=== PATIENT | female | born 1945 | race Caucasian/White ===

== ENCOUNTER 2017-03-15 18:08 | Inpatient (IN) | payer BC ==
--- NOTE | ~2017-03-15 | DS ---
Discharge Summary [facility] [address] [facility] [place]. [address] NAME: PAPA GUTIERREZ : 47 STATUS : DIS IN PAT#: [id number] AGE: 71 ADM/REG DATE : 03/15/17 MR#: [id number] REPORT SERV DATE: 04/01/17 DICTATED BY: DOMINGO QUINTERO DATE: 04/01/17 REPORT STATUS : Draft TRANSCRIBED BY: MODKatelynn DATE: 04/01/17 Data Collection from hospitalization DISCHARGE DIAGNOSES: 1. Extended-spectrum beta-lactamase Proteus mirabilis urinary tract infection. 2. Acute kidney injury on chronic kidney disease, stage 4. 3. Pancytopenia with sepsis, followed by appeals reviewer veteran. 4. Type 2 diabetes mellitus. 5. Acute blank respiratory failure secondary to sepsis. 6. Debility. 7. Chronic pain syndrome with history of fibromyalgia. CONSULTATIONS: Gold Lion M.D. PROCEDURES PERFORMED: None. MEDICATIONS: 1. Lipitor 10 mg at bedtime. 2. BuSpar 15 mg twice daily. 3. Coreg 12.5 mg twice daily. 4. Caltrate 600 mg twice daily. 5. Colace 100 mg twice daily. 6. Nuedexta one every 12 hours. 7. Uloric 40 mg every morning. 8. NovoLog insulin level 1 sliding scale before meals and at bedtime. 9. Claritin 10 mg every morning. 10.Ativan 0.5 mg twice daily. 11.Linzess 290 mcg before breakfast. 12.Melatonin 5 mg at bedtime. 13.CoQ10 200 mg every morning. 14.MS Contin 15 mg every 12 hours. 15.Multivitamin one every morning. 16.Lyrica 75 mg three times daily. 17.Requip 3 mg twice daily. 18.Zoloft 100 mg every morning. 19.Dulcolax 10 mg rectally daily as needed. 20.Magnesium 500 mg every morning. 21.Cranberry 425 mg every morning. 22.Prinivil 5 mg every morning. 23.Prolia 60 mg as directed subcutaneously every 6 months. 24.Percocet 10/325 mg one every 6 hours as needed. CONDITION AT DISCHARGE: Upon discharge, she did appear to be doing well and had no complaints. DISPOSITION: She was discharged with transfer to [facility] to continue an 1800-calorie ADA diet with activity as discussed. She was also discharged on oxygen at 2 L by nasal cannula. Discharge Summary [address] [place]. [address] NAME: PAPA GUTIERREZ : 47 STATUS : DIS IN PAT#: [id number] AGE: 71 ADM/REG DATE : 03/15/17 MR#: [id number] REPORT SERV DATE: 04/01/17 DICTATED BY: DOMINGO QUINTERO DATE: 04/01/17 REPORT STATUS : Draft TRANSCRIBED BY: MODKatelynn DATE: 04/01/17 HOSPITAL COURSE: This 71-year-old female had been transferred from [facility] at [facility] to the emergency room for complaints of low blood pressure and altered mental status. Due to the patient's decreased mental status a full history and physical exam was difficult to obtain, and the chart and staff had been reviewed. She was well known to me due to her multiple admissions. She was noted to have altered mental status at [facility] at [facility] and was therefore sent to the emergency room. Workup there had revealed increase BUN and creatinine, low platelets and questionable urine infection along with her mental status. She was therefore admitted for IV antibiotics, IV fluids, and continue medical care. She did continue to have some altered mental status. Otherwise, no nausea, vomiting, fever, chills or other signs or symptoms of infection. She had no rash. No signs or symptoms of other neurological deficits. Upon admission to the hospital, she had been placed on oxygen at 3 L by nasal cannula, and when awake she was to be placed on an 1800-calorie ADA diet. She was begun empirically on Rocephin for her possible urinary tract infection. Following the day of admission, her blood culture was noted to have been negative at 36 hours, and her urine culture was positive with gram-negative bacilli greater than 10.5; however, it still was not identified. She was continued on her current medications. On 03/18/2017 she denied any complaints of shortness of breath or chest pain or nausea or vomiting. She did not have any complaints of abdominal pain. Her daughter was at her bedside and reported the patient had been eating and drinking. Her urine culture on 03/18/2017 had returned with a growth of Proteus mirabilis greater than 100,000 which was sensitive to meropenem and Zosyn. On 03/19/2017 she was afebrile and her vital signs were stable; however, she was noted to be crying out in pain, stating that she had aching in her back and legs and hurt all over. She denied any complaints of shortness of breath or chest pain or nausea or vomiting or abdominal pain. She was continued on her current medications. On 03/20/2017, she was afebrile and her vital signs were stable. Her daughter was at her bedside and did report that the patient was resting better, and that her pain seemed to be better controlled. She was continued on supportive care. On 03/21/2017 she did remain in stable condition and had no new complaints noted. She had been evaluated by Physical Therapy. She did remain in stable condition and was noted to be pancytopenic. She was then seen on 03/22/[address] Gold Lion. In regard to her pancytopenia, Dr. Lion had felt that her chronic recurrent pancytopenia was secondary to her multiple comorbidities and recurrent infections causing inflammation and bone marrow suppression. He had recommended deferring any further workup as she was not transfusion dependent. On 03/23/2017, she had no new complaints noted and did continue to do well. She was continued on her current medications. She was noted to have a decent appetite and had no significant pain or shortness of breath noted. She did remain in stable condition and was then discharged on 03/24/2017 with the above instructions. Information collected by: Rhea Watson. I submit the above information as my discharge summary. SREE/ZAYNAB Domingo Quintero M.D. Discharge Summary [address] [place] [address] NAME: PAPA GUTIERREZ : 47 STATUS : DIS IN PAT#: [id number] AGE: 71 ADM/REG DATE : 03/15/17 MR#: [id number] REPORT SERV DATE: 04/01/17 DICTATED BY: DOMINGO QUINTERO DATE: 04/01/17 REPORT STATUS : Draft TRANSCRIBED BY: ZAYNAB DATE: 04/01/17 / [id number] CC: Nasim Mendosa MD [facility]
--- NOTE | ~2017-03-15 | CN ---
Consultation Report [facility] [address] [place]. [address] NAME: PAPA GUTIERREZ : 47 STATUS : ADM IN PAT#: [id number] AGE: 71 ADM/REG DATE : 03/15/17 MR#: [id number] REPORT SERV DATE: 03/22/17 DICTATED BY: GOLD CONTRERAS DATE: 03/22/17 REPORT STATUS : Draft TRANSCRIBED BY: MODKatelynn DATE: 03/22/17 HEMATOLOGY CONSULTATION NOTE DATE OF CONSULTATION: 03/22/2017 REASON FOR CONSULTATION: Pancytopenia. CHIEF COMPLAINT: Altered mental status and hypotension. HISTORY OF PRESENT ILLNESS: Ms. Gutierrez is a 71-year-old female with multiple comorbidities including coronary artery disease, congestive heart failure, rheumatoid arthritis, chronic kidney disease. She is bedbound, and resides at [facility] for the past four to five years. She has had multiple admissions and was last seen by our partner, Dr. Xiomy Frankel on 06/15/2015 for pancytopenia attributed to sepsis and infection. Now, Ms. Gutierrez is admitted from [facility] due to recurrent hypotension and altered mental status. She was found to have urinary tract infection with drug-resistant Proteus mirabilis, associated with white blood cell count of 2.5 and a platelet count of 37,000. Her platelet count was also low back in 02/2017 at 73, and despite antimicrobial therapy and supportive care in the hospital, her platelet count remains low, but she has been transfusion independent. She is currently in the room with her daughter, answers questions "yes" and "no," but is a very poor historian. REVIEW OF SYSTEMS: A complete 10-point review of systems is negative other than the above pertinent positives in the HPI. PAST MEDICAL HISTORY: Significant for coronary artery disease, congestive heart failure, chronic kidney disease, diabetes, hypertension, hyperlipidemia, fibromyalgia, chronic pain syndrome, severe deconditioning and bedbound, and history of chronic cytopenias for at least the past four to five years. SOCIAL HISTORY: The patient lives at [facility] and her daughter assists with medical decision-making. No tobacco, alcohol, or any illicit drug use. FAMILY HISTORY: Negative for any hematologic malignancies. PHYSICAL EXAMINATION: VITAL SIGNS: Include a blood pressure of 125/59, pulse of 73, respiratory rate of 18, temperature of 98.7 degrees Fahrenheit. GENERAL: This is a debilitated and chronically ill white female who is in no Consultation Report [address] [place]. [address] NAME: PAPA GUTIERREZ : 47 STATUS : ADM IN PAT#: [id number] AGE: 71 ADM/REG DATE : 03/15/17 MR#: [id number] REPORT SERV DATE: 03/22/17 DICTATED BY: GOLD CONTRERAS DATE: 03/22/17 REPORT STATUS : Draft TRANSCRIBED BY: ZAYNAB DATE: 03/22/17 apparent distress. She is eating lunch with assistance from her daughter who is spoon- feeding her. She is awake, alert, and oriented x1. HEENT: Extraocular muscles are intact. Pupils are equal, round, reactive to light. She has moist mucous membranes. NECK: Supple with no thyromegaly. CARDIOVASCULAR: She has a distant cardiac pulse on auscultation, but appears to be regular. No rubs, murmurs, or gallops that I can appreciate. LUNGS: Have coarse bibasilar breath sounds but no increased work of breathing. ABDOMEN: Obese but no hepatosplenomegaly is noted. MUSCULOSKELETAL: She has 2+ bilateral lower extremity edema with generalized weakness, 2/5 strength. LABORATORY DATA: Pertinent labs include a hemoglobin of 9.5, platelet count of 37,000, white blood cell count of 2.5. I reviewed her peripheral blood smear and confirmed no premature myeloid or lymphoid cells. No significant schistocytes, but I did appreciate poikilocytosis and anisocytosis on her smear. Thrombocytopenia was confirmed without any evidence of platelet clumping. Chest x-ray was reviewed and no acute abnormalities were noted. ASSESSMENT AND PLAN: Chronic recurrent pancytopenia. I suspect that her recurrent pancytopenia is secondary to her multiple comorbidities and recurrent infections causing inflammation and bone marrow suppression. There is no evidence on her peripheral blood smear review that there is an acute neoplastic hematologic malignancy. She may have an underlying low-grade myelodysplasia which would require a bone marrow biopsy; however, I feel we can defer this investigation as she is not transfusion dependent. Thus, we would avoid treatment at this point any ways. We can also evaluate her further for a potential DIC and check coags and fibrinogen levels. We will also add on additional nutritional studies to include an iron panel, copper, and zinc levels. Thank you for calling. It is my pleasure to assist with Ms. Gutierrez's care. We will be following along intermittently and provide further recommendations. GRS/MODL Gold Contreras MD / [id number] CC: Jacob Almanza M.D.
--- NOTE | ~2017-03-15 | HP ---
History And Physical [address] [place]. [address] NAME: PAPA GUTIERREZ : 47 STATUS : ADM [place] PAT#: [id number] AGE: 71 ADM/REG DATE : 03/15/17 MR#: [id number] REPORT SERV DATE: 03/16/17 DICTATED BY: DOMINGO QUINTERO DATE: 03/16/17 REPORT STATUS : Draft TRANSCRIBED BY: MODL DATE: 03/16/17 DATE OF ADMISSION: 03/15/2017 CHIEF COMPLAINT: Low blood pressures and altered mental status. HISTORY OF PRESENT ILLNESS: 71-year-old white female transferred from [facility] to [facility] Emergency Room for the above complaint. Due to the patient's decreased mental status, full history and physical exam is difficult to obtain. Chart and staff were reviewed. The patient is well known to me due to her multiple admissions. Please see old notes. She was noted to have altered mental status at [facility] and therefore was sent to the emergency room. Workup there revealed increased BUN and creatinine, low platelets, and questionable urine infection along with her mental status. She was therefore admitted for IV antibiotics, IV fluids, and continued medical care. Currently, the patient continues to have some altered mental status. Otherwise, no nausea or vomiting, no fever or chills, and no other signs or symptoms of infection. No rash. No signs or symptoms of other neurological deficits. ALLERGIES: MULTIPLE, PLEASE SEE CHART. MEDICATIONS: Please see MAR. PAST MEDICAL HISTORY: The patient is residing at [facility] for multiple chronic debilitative problems, especially overall gait impairment and end-stage arthritis, history of coronary artery disease with MS, systolic CHF with LVEF of 25% with ischemic cardiomyopathy, obstructive sleep apnea, morbid obesity, chronic O2 usage, cor pulmonale, anasarca, gouty arthritis, questionable rheumatoid arthritis, AICD secondary to cardiac arrhythmias, depression, anxiety, hypertension, dyslipidemia, chronic pain syndrome, fibromyalgia, IDDM type 2, history of pressure ulcers, anemia of chronic disease, gait impairment. PAST SURGICAL HISTORY: AICD placement, cataract surgery, carpal tunnel surgery, hysterectomy. SOCIAL HISTORY: The patient resides at [facility]. Daughter is present and does help with her medical care, [employer] rastafarian. FAMILY HISTORY: Hypertension. REVIEW OF SYSTEMS: Difficult to obtain due to the patient's decreased mental status. PHYSICAL EXAMINATION: History And Physical [address] [address] NAME: PAPA GUTIERREZ : 47 STATUS : ADM [place] PAT#: [id number] AGE: 71 ADM/REG DATE : 03/15/17 MR#: [id number] REPORT SERV DATE: 03/16/17 DICTATED BY: DOMINGO QUINTERO DATE: 03/16/17 REPORT STATUS : Draft TRANSCRIBED BY: MODKatelynn DATE: 03/16/17 VITAL SIGNS: Blood pressure 105/53, pulse 75, respirations 16, temperature 98.6. Weight 84 kg. GENERAL: Morbidly obese white female with decreased mental status at this time. HEAD: Normocephalic and atraumatic. EYES: Anicteric. ENT: Edentulous with dentures, but otherwise unremarkable. NECK: No JVD. LUNGS: CTA without RRW. CHEST WALL: AICD present, but otherwise no signs or symptoms of infection. HEART: Regular rate and rhythm without murmurs, gallops, or rubs. ABDOMEN: Obese, old surgical scars, nontender, nondistended. Good bowel sounds. EXTREMITIES: Chronic contractures of the upper and lower extremities, but otherwise no lesions. LYMPH: Chronic lower extremity trace bilateral edema. NEUROLOGIC: The patient confused, otherwise will follow simple commands. SKIN: Warm and dry otherwise. LABORATORY DATA: CBC shows WBC 3.8, H and H 12.4 and 38.5, PLT 51. Chemistry shows Na 142, K 4.9, Cl 103, CO2 of 29, BUN 144, creatinine 3.7 which has decreased to 3.1 today, GFR 14, albumin 3.0 (L), and chronically elevated liver function tests. Please see lab. Blood gas shows pH 7.24, pCO2 of 53, pO2 of 135, bicarb 22, O2 sat 98% on 3 L nasal cannula. Urinalysis appears to be infected. Culture pending at this time. IMAGING: Chest x-ray shows AICD, but otherwise no acute changes. IMPRESSION: 1. Altered mental status, questionable cause. 2. Hypercapnic respiratory failure, questionable cause. 3. Uremia with acute kidney injury on chronic kidney disease, stage 5 at this time. 4. Pyuria. 5. Anemia of chronic disease. 6. Thrombocytopenia. 7. Severe protein-calorie malnutrition. 8. Chronic elevated LFTs. 9. Insulin-dependent diabetes mellitus type 2. 10.History of systolic congestive heart failure/ischemic cardiomyopathy. 11.Morbid obesity with obstructive sleep apnea. 12.History of coronary artery disease. PLAN: 1. We will follow mental status. Multiple reasons for it. Could be from her respiratory status, infectious, or metabolic. We will follow closely and expect for it to improve with improved medical treatment. 2. We will follow respiratory status with more alertness at this time. We will initiate treatment if needed. We will follow symptoms at this time. 3. We will gently hydrate, consult Renal if needed, but the patient's renal function is slowly improving. The patient is at risk for worsening kidney function and kidney History And Physical [address] [address] NAME: PAPA GUTIERREZ [place] : 47 STATUS : ADM [place] PAT#: [id number] AGE: 71 ADM/REG DATE : 03/15/17 MR#: [id number] REPORT SERV DATE: 03/16/17 DICTATED BY: DOMINGO QUINTERO DATE: 03/16/17 REPORT STATUS : Draft TRANSCRIBED BY: ZAYNAB DATE: 03/16/17 failure. 4. We will follow up on urine culture. We will treat with Rocephin at this time. The patient is at risk for sepsis. 5. We will follow up chest x-ray once fluids are given to rule out pneumonia being the cause of some of her some problems. The patient is at risk for aspiration. 6. Follow up platelets, review meds, and discontinue any medication that could be causing her decreased platelets. The patient is at risk for intracranial hemorrhage. 7. Control blood pressure as she is at risk for CVA. 8. Control blood sugars as she is at risk for DKA. 9. Watch for pulmonary edema with fluids as she is at risk for worsening respiratory status with IV fluids. 10.Watch for any signs or symptoms of acute coronary syndrome as she is at risk for acute MS. 11.No DVT precautions at this time due to her decreased platelets. We will initiate some sequential pneumatic compression devices and follow symptoms for a DVT. The patient is at risk for PE and sudden . RH/MODL Domingo Quintero M.D. / [id number] CC: Jacob Almanza M.D.
[~2017-03-15 18:08] MED LIST: ASAB PO; ATV.5 PO; BUM1 PO; BUM2 PO; BUM5 PO; BUSPAR5 PO; CEFT5 PO; CENTRUM PO; CENTRUM TAB1 TAB PO; CLARIT10 PO; CO Q-10200 MG PO; COLCH6 PO; COLCRYS0.6 MG PO; COREG12 PO; COREG25 PO; CRANBERRY1 TAB OR; D.O.S.100 MG PO; DEBROX6.5 % OT; DIGITEK0.125 MG PO; DIGITEK0.25 MG PO; DOCUSOFT S100 MG PO; DOLOPHINE10 MG PO; DOLOPHINE5 MG PO; DSS PO; ESTRADIOL1 MG PO; FISH-EPA1000 MG PO; FLEXERIL5 MG PO; GENERLAC PO; GGEXPUD PO; GLUCAGEN IM; GLUCPH PO; GLUCXL10 PO; GLUCXL5 PO; GLYCOLAX; GLYCOLAX POWDER; GYNODIOL2 MG PO; HEMORRHOID RE; HUMALOG SC; IRON325 MG PO; KLONO5 PO; KLOR-CON 1010 MEQ PO; KLOR-CON M1010 MEQ PO; KLOR-CON M2020 MEQ PO; L40 PO; L80 PO; LAN125 PO; LANTUS SC; LEVAQUIN5T PO; LEVEMFLXPN SC; LEVEMIR SC; LIDODERM T; LOFIB160 PO; LOFIB67 PO; LORTAB10 PO; MAGOX4 PO; MELATONIN5 M1 PO; MICRO-K10 MEQ PO; MIRALAXPKT PO; MOMUD PO; MSIMMR15 PO; NEUR400 PO; NEUR800 PO; NITRO; NORCO PO; NORCO1 TA1 PO; NORV5 PO; NOVOLOG SC; NTG150 SL; NUEDEXTA 20-101 EACH PO; PCET PO; PERCOCET1 TA4 PO; PHENADOZ25 MG RE; PR25 PO; PRAVAC PO; PRAVACHOL40 MG PO; PRILOSEC40 MG PO; PROTONIX PO; REQUIP2 PO; REQUIP3 PO; ROXANOL20 MG/ML PO; SENTAB PO; SPIRO25 PO; STERAPRED5 MG; TRICOR48 PO; TRILIPIX135 MG PO; ULORIC40 MG PO; ULORIC80 MG PO; VASERETIC10 PO; VASOTEC10 PO; VITAMIN D1000 UNI1 PO; VITAMIN D31000 UNIT; VITAMIN D31000 UNIT PO; ZOL100 PO; ZYDONE1 TA2 PO; [UNRECOGNIZED DRUG - REMARK]
[2017-03-15 19:05] LABS: BASOPHILS 0 %; EOSINOPHILS 1.3 %; EOSINOPHILS ABSOLUTE 0.05 10/3/uL (0.0-0.53); IMMATURE GRANULOCYTES 0.8 %; IMMATURE GRANULOCYTES ABSOLUTE 0.03 10/3/uL (0.0-0.11); LYMPHOCYTES 19.4 %; LYMPHOCYTES ABSOLUTE 0.74 10/3/uL (0.67-4.30); MEAN CORPUSCULAR HEMOGLOB 27.1 pg (26.0-34.0); MEAN CORPUSCULAR VOLUME 84.2 fL (80-100); MONOCYTES 2.9 %; MONOCYTES ABSOLUTE 0.11 10/3/uL (0.21-1.20); NEUTROPHILS 75.6 %; NEUTROPHILS ABSOLUTE 2.88 10/3/uL (2.02-8.40); RBC DISTRIBUTION WIDTH 16.3 % (12.0-16.0)
[2017-03-15 19:06] LABS: ER CBC TAT 0 Hrs 05 Mins; HEMATOCRIT 38.5 % (36.0-48.0); HEMOGLOBIN 12.4 g/dL (12.0-16.0); MANUAL DIFF NO %; MEAN CORPUS HGB CONC 32.2 g/dL (32.0-36.0); RED CELL COUNT 4.57 10/6/uL (4.0-5.6); WHITE BLOOD CELLS 3.8 10/3/uL (4.5-10.5)
[2017-03-15 19:12] LABS: INTERNATIONAL NORMAL RATI 1.1 UNITS (-); PARTIAL THROMBO TIME 34.1 SEC (22.5-37.2); PROTIME (NOT ORD) 14.3 SEC (12.0-14.5)
[2017-03-15 19:21] LABS: CALCIUM, SERUM 8.5 MG/DL (8.5-10.4); CHLORIDE, SERUM 103 MMOL/L (96-112); SGOT(AST) 71 U/L (5-40); SGPT(ALT) 39 U/L (5-65); SODIUM, SERUM 140 MMOL/L (135-148); TOTAL PROTEIN 6.7 G/DL (6.0-8.5)
[2017-03-15 19:22] LABS: LACTATE 1.2 MMOL/L (0.3-2.4)
[2017-03-15 19:23] LABS: PLATELET ESTIMATE DEC (ADEQUATE)
[2017-03-15 19:24] LABS: PLATELET COUNT 51 10/3/uL (150-400)
[2017-03-15 19:25] LABS: ASCORBIC ACID (UR NOT ORDER) NEG (NEG); BILIRUBIN, URINE NEGATIVE (NEG); ER URINALYSIS TAT 0 Hrs 16 Mins; KETONE, URINE NEGATIVE (NEG); LEUKOCYTE ESTERASE(NOT OR LARGE (NEG); NITRITE (URINE) NEG (NEG); WBC (NOT ORDERED) (RFLEX) 24 (0-5)
[2017-03-15 19:27] LABS: A/G RATIO 0.8 (0.7-1.9); ALKALINE PHOSPHATASE 134 U/L (45-117); BUN (BLOOD UREA NITROGEN) 144 MG/DL (6-23); CO2 (CARBON DIOXIDE) 29 MMOL/L (24-34); GFR AFRICAN AMERICAN 14 ML/MIN (>=60); GFR NON AFRICAN AMERICAN 12 ML/MIN (>=60); GLOBULIN 3.7 G/DL (2.5-4.1); GLUCOSE, SERUM 76 MG/DL (60-99); POTASSIUM, SERUM 4.9 MMOL/L (3.5-5.3); TOTAL BILIRUBIN 0.4 MG/DL (0-1.2)
[2017-03-15 19:38] LABS: PROCALCITONIN 0.72 ng/mL (<0.5)
[2017-03-15] MEDS ORDERED: CLARIT10 PO (20:55)
[2017-03-15] MEDS ORDERED: MELATONIN5 M1 PO (20:56)
[2017-03-15] MEDS ORDERED: NUEDEXTA 20-101 EACH PO (20:56)
[2017-03-15] MEDS ORDERED: MAGNESIUM OXIDE 500 MG PO (20:58)
[2017-03-15] MEDS ORDERED: MSCONT15 PO (20:58)
[2017-03-15] MEDS ORDERED: ASAB PO (20:58)
[2017-03-15] MEDS ORDERED: ULORIC40 MG PO (20:59)
[2017-03-15] MEDS ORDERED: CRANBERRY425 MG PO (20:59)
[2017-03-15] MEDS ORDERED: MULTIVIT/MIN PO (21:00)
[2017-03-15] MEDS ORDERED: BUM1 PO (21:00)
[2017-03-15] MEDS ORDERED: COREG12 PO (21:00)
[2017-03-15] MEDS ORDERED: ATV.5 PO (21:01)
[2017-03-15] MEDS ORDERED: REQUIP3 PO (21:01)
[2017-03-15] MEDS ORDERED: PRIN5 PO (21:02)
[2017-03-15] MEDS ORDERED: CO Q-10200 MG PO (21:02)
[2017-03-15] MEDS ORDERED: LIPITOR10 PO (21:02)
[2017-03-15] MEDS ORDERED: CALTRA600D PO (21:03)
[2017-03-15] MEDS ORDERED: LINZESS 290 M290 MCG PO (21:03)
[2017-03-15] MEDS ORDERED: DSS PO (21:04)
[2017-03-15] MEDS ORDERED: PROLIA60 MG/1 ML SC (21:04)
[2017-03-15] MEDS ORDERED: BUSPAR15 M1 PO (21:04)
[2017-03-15] MEDS ORDERED: LANTUS SC (21:05)
[2017-03-15] MEDS ORDERED: LYRICA75 PO (21:05)
[2017-03-15] MEDS ORDERED: ZOL100 PO (21:05)
[2017-03-15] MEDS ORDERED: PERCOCET 10/3251 TAB PO (21:06)
[2017-03-15 21:27] LABS: BE (BASE EXCESS) -5.9 MEQ/L (0 +/- 2.5); HCO3 (ACTUAL BICARBONATE) 22.1 MEQ/L (23-27); INSTRUMENT SERIAL # 8087; PCO2 (CO2 TENSION) 53 MMHG (35-45); PO2 (O2 TENSION) 135 MMHG (79-93); pH 7.24 (7.37-7.43)
[2017-03-15 21:28] LABS: DEVICE NC; OPERATOR ID 33449; SAMPLE Arterial
[2017-03-16 08:38] LABS: BASOPHILS 0.2 %; BASOPHILS ABSOLUTE 0.01 10/3/uL (0.0-0.16); EOSINOPHILS 3.1 %; EOSINOPHILS ABSOLUTE 0.13 10/3/uL (0.0-0.53); HEMATOCRIT 38.3 % (36.0-48.0); HEMOGLOBIN 12.2 g/dL (12.0-16.0); IMMATURE GRANULOCYTES 0.9 %; IMMATURE GRANULOCYTES ABSOLUTE 0.04 10/3/uL (0.0-0.11); LYMPHOCYTES 16.8 %; LYMPHOCYTES ABSOLUTE 0.71 10/3/uL (0.67-4.30); MEAN CORPUS HGB CONC 31.9 g/dL (32.0-36.0); MEAN CORPUSCULAR HEMOGLOB 26.8 pg (26.0-34.0); MEAN CORPUSCULAR VOLUME 84.2 fL (80-100); MONOCYTES ABSOLUTE 0.34 10/3/uL (0.21-1.20); RBC DISTRIBUTION WIDTH 16.7 % (12.0-16.0); RED CELL COUNT 4.55 10/6/uL (4.0-5.6); WHITE BLOOD CELLS 4.2 10/3/uL (4.5-10.5)
[2017-03-16 08:51] LABS: A/G RATIO 0.8 (0.7-1.9); ALBUMIN 2.9 G/DL (3.5-5.0); ALKALINE PHOSPHATASE 121 U/L (45-117); BUN (BLOOD UREA NITROGEN) 126 MG/DL (6-23); CALCIUM, SERUM 8.4 MG/DL (8.5-10.4); CHLORIDE, SERUM 106 MMOL/L (96-112); CO2 (CARBON DIOXIDE) 22 MMOL/L (24-34); CPK (IF ELEVATED MB BANDS) 110 U/L (0-200); CREATININE 3.11 MG/DL (0.55-1.02); GFR AFRICAN AMERICAN 17 ML/MIN (>=60); GFR NON AFRICAN AMERICAN 14 ML/MIN (>=60); GLOBULIN 3.6 G/DL (2.5-4.1); GLUCOSE, SERUM 57 MG/DL (60-99); POTASSIUM, SERUM 4.4 MMOL/L (3.5-5.3); SGOT(AST) 51 U/L (5-40); SGPT(ALT) 36 U/L (5-65); SODIUM, SERUM 139 MMOL/L (135-148); TOTAL BILIRUBIN 0.3 MG/DL (0-1.2); TOTAL PROTEIN 6.5 G/DL (6.0-8.5); TROPONIN I 0.03 NG/ML (<0.05)
[2017-03-16 09:20] LABS: MANUAL DIFF NO %; PLATELET COUNT 38 10/3/uL (150-400)
[2017-03-17 06:31] LABS: BASOPHILS 0.3 %; BASOPHILS ABSOLUTE 0.01 10/3/uL (0.0-0.16); EOSINOPHILS ABSOLUTE 0.06 10/3/uL (0.0-0.53); HEMOGLOBIN 10.8 g/dL (12.0-16.0); IMMATURE GRANULOCYTES 1.7 %; IMMATURE GRANULOCYTES ABSOLUTE 0.05 10/3/uL (0.0-0.11); LYMPHOCYTES 21.5 %; LYMPHOCYTES ABSOLUTE 0.65 10/3/uL (0.67-4.30); MEAN CORPUS HGB CONC 32.1 g/dL (32.0-36.0); MEAN CORPUSCULAR HEMOGLOB 26.8 pg (26.0-34.0); MEAN CORPUSCULAR VOLUME 83.4 fL (80-100); MONOCYTES 6.3 %; MONOCYTES ABSOLUTE 0.19 10/3/uL (0.21-1.20); NEUTROPHILS 68.2 %; NEUTROPHILS ABSOLUTE 2.06 10/3/uL (2.02-8.40); RBC DISTRIBUTION WIDTH 16.4 % (12.0-16.0); RED CELL COUNT 4.03 10/6/uL (4.0-5.6)
[2017-03-17 06:33] LABS: HEMATOCRIT 33.6 % (36.0-48.0); MANUAL DIFF NO %; PLATELET COUNT 39 10/3/uL (150-400)
[2017-03-17 06:45] LABS: CALCIUM, SERUM 8.5 MG/DL (8.5-10.4); CHLORIDE, SERUM 103 MMOL/L (96-112); CO2 (CARBON DIOXIDE) 22 MMOL/L (24-34); POTASSIUM, SERUM 4.3 MMOL/L (3.5-5.3); SODIUM, SERUM 133 MMOL/L (135-148)
[2017-03-17 06:46] LABS: BUN (BLOOD UREA NITROGEN) 109 MG/DL (6-23); CREATININE 2.45 MG/DL (0.55-1.02); GFR AFRICAN AMERICAN 22 ML/MIN (>=60); GFR NON AFRICAN AMERICAN 19 ML/MIN (>=60); GLUCOSE, SERUM 201 MG/DL (60-99); PHOSPHORUS, SERUM 5.2 MG/DL (2.5-4.5)
[2017-03-17 06:53] LABS: RBC MORPHOLOGY NORM (NORMAL)
[2017-03-18 06:02] LABS: BASOPHILS 0.5 %; BASOPHILS ABSOLUTE 0.01 10/3/uL (0.0-0.16); EOSINOPHILS 3.8 %; EOSINOPHILS ABSOLUTE 0.08 10/3/uL (0.0-0.53); HEMATOCRIT 32.3 % (36.0-48.0); HEMOGLOBIN 10.5 g/dL (12.0-16.0); IMMATURE GRANULOCYTES ABSOLUTE 0.02 10/3/uL (0.0-0.11); LYMPHOCYTES 24.9 %; LYMPHOCYTES ABSOLUTE 0.52 10/3/uL (0.67-4.30); MEAN CORPUS HGB CONC 32.5 g/dL (32.0-36.0); MEAN CORPUSCULAR HEMOGLOB 26.6 pg (26.0-34.0); MEAN CORPUSCULAR VOLUME 81.8 fL (80-100); MONOCYTES 6.2 %; MONOCYTES ABSOLUTE 0.13 10/3/uL (0.21-1.20); NEUTROPHILS 63.6 %; NEUTROPHILS ABSOLUTE 1.33 10/3/uL (2.02-8.40); RBC DISTRIBUTION WIDTH 16.2 % (12.0-16.0); RED CELL COUNT 3.95 10/6/uL (4.0-5.6)
[2017-03-18 06:03] LABS: PLATELET COUNT 31 10/3/uL (150-400); WHITE BLOOD CELLS 2.1 10/3/uL (4.5-10.5)
[2017-03-18 06:04] LABS: MANUAL DIFF NO %
[2017-03-18 06:21] LABS: CALCIUM, SERUM 8.8 MG/DL (8.5-10.4); CHLORIDE, SERUM 105 MMOL/L (96-112); CO2 (CARBON DIOXIDE) 21 MMOL/L (24-34); CREATININE 2.02 MG/DL (0.55-1.02); GFR AFRICAN AMERICAN 28 ML/MIN (>=60); GFR NON AFRICAN AMERICAN 24 ML/MIN (>=60); GLUCOSE, SERUM 189 MG/DL (60-99); POTASSIUM, SERUM 4.4 MMOL/L (3.5-5.3); SODIUM, SERUM 135 MMOL/L (135-148)
[2017-03-18 06:22] LABS: BUN (BLOOD UREA NITROGEN) 95 MG/DL (6-23); ELLIPTOCYTES 1+ (3-10/OIF) (0-2/OIF)
[2017-03-19 14:05] LABS: HEMATOCRIT 32.9 % (36.0-48.0); MEAN CORPUS HGB CONC 33.4 g/dL (32.0-36.0); MEAN CORPUSCULAR HEMOGLOB 27.1 pg (26.0-34.0); NUCLEATED RED BLOOD CELLS 9.2 /100WBC (0-0); RBC DISTRIBUTION WIDTH 16.5 % (12.0-16.0); RED CELL COUNT 4.06 10/6/uL (4.0-5.6); WHITE BLOOD CELLS 2.9 10/3/uL (4.5-10.5)
[2017-03-19 14:06] LABS: MANUAL DIFF YES %; PLATELET COUNT 76 10/3/uL (150-400)
[2017-03-19 14:27] LABS: EOSINOPHILS 1 %; EOSINOPHILS ABSOLUTE (CALC) 0.03 10/3/uL (0.0-0.53); LYMPHOCYTES 24 %; NEUTROPHILS ABSOLUTE (CALC) 2.18 10/3/uL (2.02-8.40); OVALOCYTES 1+ (3-10/OIF) (0-2/OIF); PLATELET ESTIMATE DEC (ADEQUATE); SEGMENTED NEUTROPHIL (0) 75 %; TOTAL NUCLEATED CELLS 100
[2017-03-19 14:44] LABS: CALCIUM, SERUM 9.3 MG/DL (8.5-10.4); CHLORIDE, SERUM 109 MMOL/L (96-112); CO2 (CARBON DIOXIDE) 21 MMOL/L (24-34); GFR AFRICAN AMERICAN 40 ML/MIN (>=60); GFR NON AFRICAN AMERICAN 34 ML/MIN (>=60); GLUCOSE, SERUM 154 MG/DL (60-99); SODIUM, SERUM 138 MMOL/L (135-148)
[2017-03-19 14:46] LABS: BUN (BLOOD UREA NITROGEN) 74 MG/DL (6-23); CREATININE 1.52 MG/DL (0.55-1.02)
[2017-03-20 07:07] LABS: BUN (BLOOD UREA NITROGEN) 63 MG/DL (6-23); CALCIUM, SERUM 9.9 MG/DL (8.5-10.4); CHLORIDE, SERUM 111 MMOL/L (96-112); CO2 (CARBON DIOXIDE) 23 MMOL/L (24-34); CREATININE 1.37 MG/DL (0.55-1.02); GFR AFRICAN AMERICAN 45 ML/MIN (>=60); GFR NON AFRICAN AMERICAN 39 ML/MIN (>=60); GLUCOSE, SERUM 134 MG/DL (60-99); SODIUM, SERUM 141 MMOL/L (135-148)
[2017-03-20 10:14] LABS: BASOPHILS 0 %; EOSINOPHILS 3.6 %; EOSINOPHILS ABSOLUTE 0.11 10/3/uL (0.0-0.53); HEMATOCRIT 33.2 % (36.0-48.0); HEMOGLOBIN 10.6 g/dL (12.0-16.0); IMMATURE GRANULOCYTES 0.7 %; IMMATURE GRANULOCYTES ABSOLUTE 0.02 10/3/uL (0.0-0.11); LYMPHOCYTES 10.4 %; LYMPHOCYTES ABSOLUTE 0.32 10/3/uL (0.67-4.30); MEAN CORPUS HGB CONC 31.9 g/dL (32.0-36.0); MEAN CORPUSCULAR HEMOGLOB 26.6 pg (26.0-34.0); MEAN CORPUSCULAR VOLUME 83.2 fL (80-100); MONOCYTES 7.5 %; MONOCYTES ABSOLUTE 0.23 10/3/uL (0.21-1.20); NEUTROPHILS 77.8 %; NEUTROPHILS ABSOLUTE 2.39 10/3/uL (2.02-8.40); RBC DISTRIBUTION WIDTH 16.3 % (12.0-16.0); RED CELL COUNT 3.99 10/6/uL (4.0-5.6); WHITE BLOOD CELLS 3.1 10/3/uL (4.5-10.5)
[2017-03-20 10:25] LABS: PLATELET COUNT 36 10/3/uL (150-400)
[2017-03-20 10:26] LABS: MANUAL DIFF NO %
[2017-03-21 07:24] LABS: BASOPHILS 0.4 %; BASOPHILS ABSOLUTE 0.01 10/3/uL (0.0-0.16); EOSINOPHILS 3.6 %; HEMOGLOBIN 10.1 g/dL (12.0-16.0); IMMATURE GRANULOCYTES 0.7 %; IMMATURE GRANULOCYTES ABSOLUTE 0.02 10/3/uL (0.0-0.11); LYMPHOCYTES 15.1 %; LYMPHOCYTES ABSOLUTE 0.42 10/3/uL (0.67-4.30); MEAN CORPUS HGB CONC 32.6 g/dL (32.0-36.0); MEAN CORPUSCULAR HEMOGLOB 27.2 pg (26.0-34.0); MEAN CORPUSCULAR VOLUME 83.6 fL (80-100); MONOCYTES 7.9 %; MONOCYTES ABSOLUTE 0.22 10/3/uL (0.21-1.20); NEUTROPHILS 72.3 %; NEUTROPHILS ABSOLUTE 2.02 10/3/uL (2.02-8.40); RBC DISTRIBUTION WIDTH 16.4 % (12.0-16.0); RED CELL COUNT 3.71 10/6/uL (4.0-5.6); WHITE BLOOD CELLS 2.8 10/3/uL (4.5-10.5)
[2017-03-21 07:25] LABS: MANUAL DIFF NO %; PLATELET COUNT 36 10/3/uL (150-400)
[2017-03-21 07:37] LABS: BUN (BLOOD UREA NITROGEN) 60 MG/DL (6-23); CALCIUM, SERUM 9.3 MG/DL (8.5-10.4); CHLORIDE, SERUM 111 MMOL/L (96-112); CO2 (CARBON DIOXIDE) 26 MMOL/L (24-34); GFR AFRICAN AMERICAN 44 ML/MIN (>=60); GFR NON AFRICAN AMERICAN 38 ML/MIN (>=60); GLUCOSE, SERUM 134 MG/DL (60-99); POTASSIUM, SERUM 4.7 MMOL/L (3.5-5.3); SODIUM, SERUM 141 MMOL/L (135-148)
[2017-03-22 04:57] LABS: BUN (BLOOD UREA NITROGEN) 57 MG/DL (6-23); CALCIUM, SERUM 9.1 MG/DL (8.5-10.4); CHLORIDE, SERUM 106 MMOL/L (96-112); CO2 (CARBON DIOXIDE) 28 MMOL/L (24-34); CREATININE 1.41 MG/DL (0.55-1.02); GFR AFRICAN AMERICAN 44 ML/MIN (>=60); GFR NON AFRICAN AMERICAN 38 ML/MIN (>=60); GLUCOSE, SERUM 139 MG/DL (60-99); POTASSIUM, SERUM 4.6 MMOL/L (3.5-5.3); SODIUM, SERUM 139 MMOL/L (135-148)
[2017-03-22 04:59] LABS: BASOPHILS 0 %; EOSINOPHILS 5.5 %; EOSINOPHILS ABSOLUTE 0.14 10/3/uL (0.0-0.53); HEMATOCRIT 29.1 % (36.0-48.0); HEMOGLOBIN 9.4 g/dL (12.0-16.0); IMMATURE GRANULOCYTES 0.8 %; IMMATURE GRANULOCYTES ABSOLUTE 0.02 10/3/uL (0.0-0.11); LYMPHOCYTES 20.9 %; LYMPHOCYTES ABSOLUTE 0.53 10/3/uL (0.67-4.30); MANUAL DIFF NO %; MEAN CORPUS HGB CONC 32.3 g/dL (32.0-36.0); MEAN CORPUSCULAR VOLUME 83.6 fL (80-100); MONOCYTES 5.9 %; MONOCYTES ABSOLUTE 0.15 10/3/uL (0.21-1.20); NEUTROPHILS 66.9 %; NEUTROPHILS ABSOLUTE 1.69 10/3/uL (2.02-8.40); PLATELET COUNT 37 10/3/uL (150-400); RBC DISTRIBUTION WIDTH 16.6 % (12.0-16.0); RED CELL COUNT 3.48 10/6/uL (4.0-5.6); WHITE BLOOD CELLS 2.5 10/3/uL (4.5-10.5)
[2017-03-22 06:33] LABS: ELLIPTOCYTES 1+ (3-10/OIF) (0-2/OIF); PLATELET ESTIMATE DEC (ADEQUATE)
[2017-03-22 06:34] LABS: ACANTHOCYTES OCC (0-2/OIF); HELMET CELLS OCC (0-2/OIF); HYPOCHROMIA 1+ (3-10/OIF) (0-2/OIF); POLYCHROMASIA 1+ (2-5/OIF) (0-1/OIF); TARGET CELLS OCC (1-2/OIF) (0-1/OIF); TEARDROP SHAPED RBCS OCC (0-2/OIF)
[2017-03-23 08:47] LABS: BUN (BLOOD UREA NITROGEN) 52 MG/DL (6-23); CALCIUM, SERUM 9.3 MG/DL (8.5-10.4); CHLORIDE, SERUM 108 MMOL/L (96-112); CO2 (CARBON DIOXIDE) 24 MMOL/L (24-34); CREATININE 1.36 MG/DL (0.55-1.02); FERRITIN 161 NG/ML (8-252); GFR AFRICAN AMERICAN 46 ML/MIN (>=60); GFR NON AFRICAN AMERICAN 39 ML/MIN (>=60); GLUCOSE, SERUM 174 MG/DL (60-99); IRON, SERUM 34 MCG/DL (35-150); SODIUM, SERUM 135 MMOL/L (135-148)
[2017-03-23 13:40] LABS: BASOPHILS 0.3 %; BASOPHILS ABSOLUTE 0.01 10/3/uL (0.0-0.16); EOSINOPHILS 7.3 %; EOSINOPHILS ABSOLUTE 0.24 10/3/uL (0.0-0.53); HEMOGLOBIN 10.5 g/dL (12.0-16.0); IMMATURE GRANULOCYTES 0.3 %; IMMATURE GRANULOCYTES ABSOLUTE 0.01 10/3/uL (0.0-0.11); LYMPHOCYTES ABSOLUTE 0.63 10/3/uL (0.67-4.30); MEAN CORPUS HGB CONC 32.5 g/dL (32.0-36.0); MEAN CORPUSCULAR HEMOGLOB 26.7 pg (26.0-34.0); MEAN CORPUSCULAR VOLUME 82.2 fL (80-100); MONOCYTES 5.7 %; MONOCYTES ABSOLUTE 0.19 10/3/uL (0.21-1.20); NEUTROPHILS 67.4 %; NEUTROPHILS ABSOLUTE 2.23 10/3/uL (2.02-8.40); RBC DISTRIBUTION WIDTH 16.1 % (12.0-16.0); RED CELL COUNT 3.93 10/6/uL (4.0-5.6); WHITE BLOOD CELLS 3.3 10/3/uL (4.5-10.5)
[2017-03-23 13:42] LABS: HEMATOCRIT 32.3 % (36.0-48.0); PLATELET COUNT 36 10/3/uL (150-400)
[2017-03-23 13:43] LABS: FIBRINOGEN 452 MG/DL (230-462); INTERNATIONAL NORMAL RATI 1.2 UNITS (-); MANUAL DIFF NO %; PROTIME (NOT ORD) 14.8 SEC (12.0-14.5)
[2017-03-23 14:16] LABS: RBC MORPHOLOGY NORM (NORMAL)
[2017-03-24 07:15] LABS: BASOPHILS 0.3 %; BASOPHILS ABSOLUTE 0.01 10/3/uL (0.0-0.16); EOSINOPHILS 6.7 %; EOSINOPHILS ABSOLUTE 0.22 10/3/uL (0.0-0.53); HEMATOCRIT 29.8 % (36.0-48.0); HEMOGLOBIN 9.6 g/dL (12.0-16.0); IMMATURE GRANULOCYTES 0.6 %; IMMATURE GRANULOCYTES ABSOLUTE 0.02 10/3/uL (0.0-0.11); LYMPHOCYTES 21.2 %; LYMPHOCYTES ABSOLUTE 0.69 10/3/uL (0.67-4.30); MEAN CORPUS HGB CONC 32.2 g/dL (32.0-36.0); MEAN CORPUSCULAR HEMOGLOB 26.4 pg (26.0-34.0); MEAN CORPUSCULAR VOLUME 81.9 fL (80-100); MONOCYTES 6.7 %; MONOCYTES ABSOLUTE 0.22 10/3/uL (0.21-1.20); NEUTROPHILS 64.5 %; RBC DISTRIBUTION WIDTH 16.3 % (12.0-16.0); RED CELL COUNT 3.64 10/6/uL (4.0-5.6); WHITE BLOOD CELLS 3.3 10/3/uL (4.5-10.5)
[2017-03-24 07:18] LABS: PLATELET COUNT 55 10/3/uL (150-400)
[2017-03-24 07:19] LABS: MANUAL DIFF NO %
[2017-03-24 07:25] LABS: BUN (BLOOD UREA NITROGEN) 48 MG/DL (6-23); CHLORIDE, SERUM 107 MMOL/L (96-112); CO2 (CARBON DIOXIDE) 26 MMOL/L (24-34); CREATININE 1.25 MG/DL (0.55-1.02); GFR AFRICAN AMERICAN 50 ML/MIN (>=60); GFR NON AFRICAN AMERICAN 44 ML/MIN (>=60); GLUCOSE, SERUM 125 MG/DL (60-99); POTASSIUM, SERUM 4.8 MMOL/L (3.5-5.3); SODIUM, SERUM 139 MMOL/L (135-148)
[2017-03-24 07:45] LABS: HYPOCHROMIA 1+ (3-10/OIF) (0-2/OIF); PLATELET ESTIMATE DEC (ADEQUATE)
[2017-03-24 08:23] LABS: SED RATE 29 MM/HR (0-20)
[2017-03-25 20:11] LABS: COPPER 136 ug/dL (80-155); ZINC 47 ug/dL (60-120)
== END 2017-03-24 16:52 | DRG 871 ==
LOC: ER 18:08 → 4SO 20:55
PROVIDERS: Emergency Medicine; Family Medicine; Internal Medicine Hematology & Oncology; Nurse Practitioner Family; Nurse Practitioner Gerontology
DX: A41.89 Other specified sepsis (principal); E43 Unspecified severe protein-calorie malnutrition; N17.9 Acute kidney failure, unspecified; G93.41 Metabolic encephalopathy; I13.2 Hypertensive heart and chronic kidney disease with heart failure and with stage 5 chronic kidney disease, or end stage renal disease; J96.12 Chronic respiratory failure with hypercapnia; D61.818 Other pancytopenia; I50.22 Chronic systolic (congestive) heart failure; N18.5 Chronic kidney disease, stage 5; N39.0 Urinary tract infection, site not specified; R65.20 Severe sepsis without septic shock; I25.5 Ischemic cardiomyopathy; E86.0 Dehydration; E11.22 Type 2 diabetes mellitus with diabetic chronic kidney disease; D63.1 Anemia in chronic kidney disease; M79.7 Fibromyalgia; E66.01 Morbid (severe) obesity due to excess calories; I25.10 Atherosclerotic heart disease of native coronary artery without angina pectoris; F41.9 Anxiety disorder, unspecified; F32.9 Major depressive disorder, single episode, unspecified; G47.33 Obstructive sleep apnea (adult) (pediatric); G89.4 Chronic pain syndrome; M10.9 Gout, unspecified; K21.9 Gastro-esophageal reflux disease without esophagitis; I25.2 Old myocardial infarction; Z79.4 Long term (current) use of insulin; Z98.890 Other specified postprocedural states; Z95.810 Presence of automatic (implantable) cardiac defibrillator; Z68.31 Body mass index [BMI] 31.0-31.9, adult; Z74.01 Bed confinement status; Z99.81 Dependence on supplemental oxygen; L89.151 Pressure ulcer of sacral region, stage 1; K59.00 Constipation, unspecified; E11.42 Type 2 diabetes mellitus with diabetic polyneuropathy; I95.9 Hypotension, unspecified; Z88.0 Allergy status to penicillin; Z88.2 Allergy status to sulfonamides; Z88.8 Allergy status to other drugs, medicaments and biological substances; Z88.5 Allergy status to narcotic agent; E11.65 Type 2 diabetes mellitus with hyperglycemia
CPT/HCPCS: 36415; 36600; 71010; 80048; 80053; 81001; 82525; 82550; 82728; 82805; 82962; 83540; 83605; 83735; 83880; 84100; 84145; 84484; 84630; 85025; 85384; 85610; 85652; 85730; 86850; 86900; 86901; 87040; 87077; 87086; 87186; 93005; 96374; 97161-GP; 99291; A9270-GY; J2185; P9059